=== PATIENT | male | born 1945 | race African-American/Black ===

== ENCOUNTER 2017-12-12 21:52 | Inpatient (IN) | payer MEDICARE, MEDICAID ==
[~2017-12-12] VITALS: Ht 195.6 cm; Wt 75.3 kg
[~2017-12-12 21:52] MED LIST: AMLO5TAB4 PO; METF500T4 PO
[2017-12-13] VITALS (7 sets, daily range): BP systolic 139–169; BP diastolic 72–100
[2017-12-13] MEDS ORDERED: CEPHALEXIN 500MG CAPSULE PO ONE
[2017-12-13] MEDS ORDERED: CEPHALEXIN 500MG CAPSULE PO SCH (00:15)
[2017-12-13] MEDS ORDERED: METFORMIN HCL 500MG TABLET PO ONE (00:30)
[2017-12-13] MEDS ORDERED: AMLODIPINE 10MG TABLET PO ONE (00:30)
[2017-12-13 01:03] LABS: HEMOGLOBIN 13.6 g/dL (14.0-18.0); MEAN CORPUSCULAR HEMOGLOBIN 28.4 pg (28.0-32.0); MEAN CORPUSCULAR VOLUME 87.5 fL (80.0-94.0); PLATELET 169 x1000/uL (130-400); RED CELL DISTRIBUTION WIDTH 14.7 % (11.6-14.6)
[2017-12-13 01:11] LABS: CHLORIDE 103 mEq/L (98-107)
[2017-12-13 01:17] LABS: CARBON DIOXIDE 26 mEq/L (21-32)
[2017-12-13] MEDS ORDERED: NA PHOS,M-B/NA PHOS,DI-BA ENEMA 118ML PR PRN (01:30)
[2017-12-13] MEDS ORDERED: IPRATROPIUM/ALBUTEROL 0.5-3(2.5)MG/3ML NEB INH PRN (01:30)
[2017-12-13] MEDS ORDERED: HYDROCODONE/ACETAMINOPHEN 5/325MG TABLET PO PRN (01:30)
[2017-12-13] MEDS ORDERED: ONDANSETRON HCL 4MG/2ML VIAL IV PRN (01:30)
[2017-12-13] MEDS ORDERED: ACETAMINOPHEN 325MG TABLET PO PRN (01:30)
[2017-12-13] MEDS ORDERED: CLONIDINE 0.1MG TABLET PO PRN (01:30)
[2017-12-13] MEDS ORDERED: MAGNESIUM/ALUMINUM HYDROXIDE/SIMETHICONE 30ML UDC PO PRN (01:30)
[2017-12-13] MEDS ORDERED: DEXTROSE 50% WATER 50ML SYRINGE IV PRN (01:30)
[2017-12-13] MEDS ORDERED: ACETAMINOPHEN 650MG SUPP PR PRN (01:30)
[2017-12-13] MEDS ORDERED: DIPHENHYDRAMINE 50MG/ML VIAL IV PRN (01:30)
[2017-12-13] MEDS ORDERED: ACETAMINOPHEN 650MG/20.3ML UDC GT PRN (01:30)
[2017-12-13] MEDS: GLIPIZIDE 10MG TABLET PO SCH ×2 (01:51→06:39)
[2017-12-13] MEDS: BLOOD SUGAR DIAGNOSTIC STRIP TEST SCH ×4 (06:39→20:35)
[2017-12-13] MEDS: GUAIFENESIN 200MG/10ML SUGAR FREE UDC PO PRN (10:39)
[2017-12-13] MEDS: METFORMIN HCL 500MG TABLET PO SCH ×2 (10:39→16:49)
[2017-12-13] MEDS: ENOXAPARIN 40MG/0.4ML SYR SUBCUT SCH (10:40)
[2017-12-13] MEDS: INSULIN LISPRO 100 UNITS/ML SUBCUT SCH ×4 (10:44→20:35)
[2017-12-14] VITALS (7 sets, daily range): BP systolic 124–171; BP diastolic 86–103
[2017-12-14] MEDS: BLOOD SUGAR DIAGNOSTIC STRIP TEST SCH ×4 (06:47→21:08)
[2017-12-14] MEDS ORDERED: GLIPIZIDE 5MG XL TABLET PO SCH (07:50)
[2017-12-14] MEDS: INSULIN LISPRO 100 UNITS/ML SUBCUT SCH ×4 (08:31→21:17)
[2017-12-14] MEDS: METFORMIN HCL 500MG TABLET PO SCH ×2 (08:34→17:44)
[2017-12-14] MEDS: ENOXAPARIN 40MG/0.4ML SYR SUBCUT SCH (08:35)
[2017-12-14] MEDS: GUAIFENESIN 200MG/10ML SUGAR FREE UDC PO PRN (09:40)
[2017-12-15 00:26] VITALS: BP 122/88
[2017-12-15 04:00] VITALS: BP 152/93
[2017-12-15] MEDS ORDERED: GLIPIZIDE 5MG XL TABLET PO SCH (07:50)
[2017-12-15] MEDS: BLOOD SUGAR DIAGNOSTIC STRIP TEST SCH ×2 (07:57→12:37)
[2017-12-15 08:00] VITALS: BP 128/83
[2017-12-15] MEDS: ENOXAPARIN 40MG/0.4ML SYR SUBCUT SCH (08:15)
[2017-12-15] MEDS: METFORMIN HCL 500MG TABLET PO SCH (08:15)
[2017-12-15] MEDS: INSULIN LISPRO 100 UNITS/ML SUBCUT SCH ×2 (08:22→12:59)
[2017-12-15 12:00] VITALS: BP 132/93
[2017-12-15] MEDS: GUAIFENESIN 200MG/10ML SUGAR FREE UDC PO PRN (12:51)
== END 2017-12-15 15:35 | DRG 310 ==
LOC: ENRESERV 23:02 → ER 12-13 01:26 → 6EST 12-13 02:16
PROVIDERS: ADMIT Family Medicine; ATTEND Family Medicine
DX: R00.0 Tachycardia, unspecified (principal); E11.9 Type 2 diabetes mellitus without complications; R26.9 Unspecified abnormalities of gait and mobility; F99 Mental disorder, not otherwise specified; F17.200 Nicotine dependence, unspecified, uncomplicated; I10 Essential (primary) hypertension; Z59.0 Homelessness; Z99.3 Dependence on wheelchair; Z87.01 Personal history of pneumonia (recurrent); Z79.899 Other long term (current) drug therapy
CPT/HCPCS: 36415; 80048; 82962; 85027; 99285; J1650; J1815